=== PATIENT | female | born 1940 | race Caucasian/White ===

== ENCOUNTER 2018-09-27 17:52 | Emergency (ER) | payer MEDICARE, BC ==
[~2018-09-27] VITALS: Ht 152.4 cm; Wt 96.6 kg
[2018-09-27 18:03] VITALS: BP 139/59
--- NOTE | 2018-09-27 19:10 | NUR ---
PT AMBULATE FROM WAITING ROOM TO [facility] WITH STEADY GAIT, CARRYING PURSE AND SUITCASE WITH HER DOG IN IT.
--- NOTE | 2018-09-27 20:19 | NUR ---
PT ABDULKADIR WILKINSON VERBALIZE PRECIFIC PROBLEM AFTER MECHANICAL FALL, SHE ONLY WANT TO DISCUSS ALLERIES TO MEDICATIONS AND ENVIRONMENTAL ALLLERGIES. PT IS NOT MAKIING ANY SENSE.
--- NOTE | 2018-09-27 20:22 | NUR ---
Patient came to me saying that she wanted a new doctor. I informed her that he was the ER doctor on at the moment and the only one who can provide her care. I was told that if he did not answer her questions about her allergies that, " We would all be sued". I advised her that I can bring the charge nurse over to speak with her. To this, she declined. Patient appears to be very confused and does not speak clearly. She states that she had a fall, then she didn't. She got up and told the other patients "You all need to get out of here while you can".
--- NOTE | 2018-09-27 20:38 | NUR ---
Patient left stating that she couldn't stay here any longer. Refused to wait for paperwork.
--- NOTE | 2018-09-27 20:40 | NUR ---
Patient was 97% RA
== END 2018-09-27 21:02 | disposition home or self-care (01) ==
LOC: ER 17:52
DX: G89.29 Other chronic pain (principal); M54.5 Low back pain; M25.521 Pain in right elbow; M25.511 Pain in right shoulder; M25.512 Pain in left shoulder; J44.9 Chronic obstructive pulmonary disease, unspecified; E11.9 Type 2 diabetes mellitus without complications; Z98.890 Other specified postprocedural states; Z88.8 Allergy status to other drugs, medicaments and biological substances; W18.39XA Other fall on same level, initial encounter; Y93.89 Activity, other specified; Y92.89 Other specified places as the place of occurrence of the external cause; Y99.8 Other external cause status
CPT/HCPCS: 99281